=== PATIENT | male | born 1985 | race Two or more races ===

== ENCOUNTER 2018-08-09 05:11 | Emergency (ER) | payer BC ==
[~2018-08-09] VITALS: Ht 182.9 cm; Wt 72.6 kg
[2018-08-09] MEDS ORDERED: ONDANSETRON 4 MG/2 ML VIAL ONE ×2 (05:27→06:27)
[2018-08-09] MEDS ORDERED: ONDANSETRON 4 MG/2 ML VIAL IV ONE (05:30)
[2018-08-09] MEDS ORDERED: IV NORMAL SALINE 1000 ML BAG IV ONE (05:30)
[2018-08-09 05:58] LABS: CREATININE 0.9 mg/dL (0.6-1.3)
[2018-08-09 06:04] LABS: BILIRUBIN,DIRECT 0.1 mg/dL (0.0-0.2); BILIRUBIN,TOTAL 0.5 mg/dL (0.2-1.0); TOTAL PROTEIN, SERUM 7.7 g/dL (6.4-8.2)
[2018-08-09 06:19] LABS: BASOPHILS % (AUTO) 0.4 % (0.0-2.0); EOSINOPHILS # (AUTO) 0.2 K/uL (0.0-0.7); EOSINOPHILS % (AUTO) 1.4 % (0.0-7.0); HEMATOCRIT 41.5 % (36.7-47.1); HEMOGLOBIN 14.4 g/dL (12.5-16.3); LYMPHOCYTES # (AUTO) 0.7 K/uL (20.0-40.0); LYMPHOCYTES % (AUTO) 6.5 % (20.5-51.5); MEAN CORPUSCULAR HEMOGLOBIN 30.2 uug (23.8-33.4); MEAN CORPUSCULAR HGB CONC 35 g/dL (32.5-36.3); MEAN CORPUSCULAR VOLUME 86.9 fL (73.0-96.2); MONOCYTES # (AUTO) 0.7 K/uL (2.0-10.0); MONOCYTES % (AUTO) 5.9 % (0.0-11.0); NEUTROPHILS # (AUTO) 9.7 K/uL (1.8-8.9); NEUTROPHILS % (AUTO) 85.8 % (38.5-71.5); PLATELET COUNT (AUTO) 214 K/uL (152-348); RED BLOOD CELL COUNT(AUTO) 4.78 MIL/uL (4.06-5.63); WHITE BLOOD COUNT (AUTO) 11.4 K/uL (3.6-10.2)
[2018-08-09] MEDS ORDERED: ONDANSETRON IV *ER 4 MG/2 ML VIAL IV ONE (06:30)
[2018-08-09] MEDS ORDERED: METOCLOPRAMIDE HCL 10 MG/2 ML VIAL ONE (07:07)
--- NOTE | 2018-08-09 07:13 | NUR ---
SBAR to MARTHA Paulino
[2018-08-09] MEDS ORDERED: METOCLOPRAMIDE HCL 10 MG/2 ML VIAL IV ONE (07:15)
--- NOTE | 2018-08-09 07:32 | NUR ---
assumed patient care 32 years old male presents to er with nausea vomiting denies abdominal pain condition improved tolerated PO intake will continue to monitor.
[2018-08-09 08:55] VITALS: BP 102/60
--- NOTE | 2018-08-09 08:56 | NUR ---
patient condition stable denies abdominal pain no nausea vomiting d/c home with instructions after care reviewed understood left er alert, oriented x4 ambulatory with steady gait.
== END 2018-08-09 08:57 | disposition home or self-care (01) ==
LOC: ER 05:13
DX: R11.2 Nausea with vomiting, unspecified (principal)
CPT/HCPCS: 36415; 80048; 80076; 83690; 85025; 96361; 96374; 96375; 96376; 99283; J2405 ×2; J2765; A4663; J7030